=== PATIENT | female | born 1965 | race Caucasian/White ===

== ENCOUNTER 2017-04-02 10:05 | Inpatient (IN) | payer OTHER ==
[2017-04-02] VITALS (11 sets, daily range): BP systolic 123–163; BP diastolic 74–93
[~2017-04-02] VITALS: Ht 152.4 cm; Wt 84.8 kg
[2017-04-02] MEDS ORDERED: NALOXONE HCL 0.4 MG/ML AMPUL IV ONE ×2 (10:15)
--- NOTE | 2017-04-02 10:21 | NUR ---
PT IS IN ROOM #1A. DR GROVER EVALUATED THE PT.
[2017-04-02] MEDS ORDERED: NALOXONE HCL 0.4 MG/ML AMPUL ONE (10:26)
[2017-04-02 10:31] LABS: ABG BASE EXCESS -8.3 mmol/L; ABG HCO3 18.9 mmol/L; ABG PO2 177.6 mmHg (75.0-100.0); ABG SITE RIGHT RADIAL; ABG TOTAL HEMOGLOBIN 13.8 G/dL (12.0-16.0); COHb 1.7 % (0.5-1.5); O2Hb 97.3 % (94.0-97.0)
[2017-04-02 10:51] LABS: ETHANOL < 3 MG/DL (0-0)
[2017-04-02 11:02] LABS: CARBON DIOXIDE 23 mmol/L (21-32); CHLORIDE 99 mmol/L (98-107); CREATININE 1.1 mg/dL (0.6-1.3); GLUCOSE 97 mg/dL (74-106); POTASSIUM 4.1 mmol/L (3.5-5.1); UREA NITROGEN, BLOOD 22 mg/dL (7-18)
[2017-04-02 11:07] LABS: ALANINE AMINOTRANSFERASE 40 U/L (14-59); ALKALINE PHOSPHATASE 115 U/L (50-136); ASPARTATE AMINOTRANSFERASE 43 U/L (15-37); BILIRUBIN,DIRECT 0.1 mg/dL (0.0-0.2); BILIRUBIN,TOTAL 0.5 mg/dL (0.2-1.0); TOTAL PROTEIN, SERUM 8.5 g/dL (6.4-8.2)
[2017-04-02 11:14] LABS: ACETAMINOPHEN < 2.0 ug/mL (10-30)
[2017-04-02 11:21] LABS: BASOPHILS # (AUTO) 0.5 K/uL (0.0-8.0); BASOPHILS % (AUTO) 3.6 % (0.0-2.0); EOSINOPHILS # (AUTO) 0.2 K/uL (0.0-0.7); EOSINOPHILS % (AUTO) 1.7 % (0.0-7.0); HEMATOCRIT 39.9 % (37-47); HEMOGLOBIN 13.3 G/DL (12.0-16.0); LYMPHOCYTES # (AUTO) 3.2 K/UL (0.8-4.8); LYMPHOCYTES % (AUTO) 23.7 % (20.5-51.5); MEAN CORPUSCULAR HEMOGLOBIN 26.5 UUG (27.0-31.0); MEAN CORPUSCULAR HGB CONC 33 g/dL (32.0-37.0); MEAN CORPUSCULAR VOLUME 79.4 FL (81.0-99.0); MONOCYTES # (AUTO) 1.5 K/UL (0.1-1.30); MONOCYTES % (AUTO) 10.8 % (0.0-11.0); NEUTROPHILS # (AUTO) 8.1 K/UL (1.8-8.9); NEUTROPHILS % (AUTO) 60.2 % (38.5-71.5); PLATELET COUNT (AUTO) 233 K/UL (150-450); RED BLOOD CELL COUNT(AUTO) 5.02 MIL/UL (4.2-5.4); WHITE BLOOD COUNT (AUTO) 13.5 K/UL (4.0-11.2)
[2017-04-02 11:23] LABS: THYROID STIMULATING HORMONE 3.096 mIU/mL (0.358-3.740)
[2017-04-02 12:14] LABS: *BILIRUBIN,URIN NEGATIVE (NEGATIVE); *BLOOD, URINE Trace-lysed (NEGATIVE); *CLARITY,URINE CLEAR (CLEAR); *COLOR,URINE YELLOW (YELLOW); *KETONES,URINE TRACE (NEGATIVE); *PROTEIN,URINE TRACE (NEGATIVE); *UROBILINOGEN,URINE 0.2 E.U./dl (NORMAL); LEUKOCYTE ESTERASE ,URINE NEGATIVE (NEGATIVE); NITRITE, URINE NEGATIVE (NEGATIVE); PH,URINE 5.5 (5.0-8.0); UGLUCOSE NEGATIVE (NEGATIVE)
--- NOTE | 2017-04-02 12:15 | NUR ---
PT WAS TRANSFERED TO CCU ROOM #3. REPORT WAS GIVEN TO TRANSACTION MANAGER.
[2017-04-02 12:22] LABS: BACTERIA,URINE MODERATE /HPF (NONE SEEN); RBC,URINE 0-3 /HPF (0-3); SQUAMOUS EPITHELIAL CELL,UR FEW /HPF (NONE SEEN); WBC,URINE 0-3 /HPF (0-3)
[2017-04-02 12:25] LABS: *AMPHETAMINE, URINE POSITIVE (NEGATIVE); *BARBITURATE, URINE NEGATIVE (NEGATIVE); *CANNABINOID, URINE POSITIVE (NEGATIVE); *COCCAINE, URINE POSITIVE (NEGATIVE); *OPIATE, URINE POSITIVE (NEGATIVE); *PHENCYCLIDINE SCREEN,URINE NEGATIVE (NEGATIVE)
[2017-04-02] MEDS ORDERED: IV D5 1/2 NS 1000 ML 1,000 ML IV PRN (13:22)
--- NOTE | 2017-04-02 13:27 | NUR ---
Dr. Macias in to examine patient, orders to insert gomes catheter, NG tube and start patient on Narcan drip received.
[2017-04-02] MEDS ORDERED: NALOXONE HCL IV PRN (13:30)
[2017-04-02] MEDS ORDERED: NORMAL SALINE IV PRN (13:30)
[2017-04-02] MEDS ORDERED: MVI ADULT 10 ML VIAL=1 AMP 10 ML, THIAMINE HCL INJ 100 MG, FOLIC ACID 1 MG, MAGNESIUM S... IV SCH ×5 (13:30)
[2017-04-02] MEDS ORDERED: Z GUARD REMEDY PASTE 57 GM TUBE TOP PRN (13:30)
[2017-04-02] MEDS ORDERED: ONDANSETRON 4 MG/2 ML VIAL IV PRN (13:30)
[2017-04-02] MEDS ORDERED: HYDROCODONE/APAP 5-325MG TABLET PO PRN (13:30)
[2017-04-02] MEDS ORDERED: MAGNESIUM HYDROXIDE 30 ML LIQUID UDC PO PRN (13:30)
[2017-04-02] MEDS ORDERED: ZOLPIDEM 5 MG TABLET NG PRN (13:30)
[2017-04-02] MEDS ORDERED: ACETAMINOPHEN 325 MG TABLET PO PRN (13:30)
--- NOTE | 2017-04-02 13:43 | NUR ---
Case reported to Poison control and spoke with Mr. stroud and awaiting call with recommendations.
--- NOTE | 2017-04-02 13:50 | NUR ---
A call back from [facility] and recommendations for supportive care received. notified of recommendations.
--- NOTE | 2017-04-02 13:55 | NUR ---
Dr. Valiente ER physician in the unit to intubate patient as ordered by attending physician Dr. Macias. At 1356 20 mg of Etomidate and 100 mg of succinocholine administered by discharge coordinator as ordered by md. who is initiating intubation. 1458. Patient intubated ETT 7.5 22cm lip A/C 20, TV 500 and Peep of 5. saturation of 100%. SBP within normal limits.
--- NOTE | 2017-04-02 13:58 | NUR ---
PT INTUBATED BY ED PHYSICIAN. 7.5 ETT INSERTED, ETCO2 DETECTOR POSITIVE FOR CORRECT PLACEMENT, CLEAR BS OVER BOTH LUNG CARRILLO, ETT SECURED AT 21-22 LIP-LINE WITH ANCHOR FAST TUBE HADDAD WITH X-RAY ORDERED. PT PLACED ON VENT MECH VENT WITH MD ORDERED SETTINGS AC20 500VT PEEP+5, 40% FiO2 WITH SATS>94%. MD TO ORDER ABG'S X 20MIN. VENT ALARMS SET AND RESET. BVM AT BEDSIDE.
--- NOTE | 2017-04-02 13:58 | NUR ---
A call place for PICC line insertion Distribution Technician notified as well.
[2017-04-02] MEDS ORDERED: ETOMIDATE 20 MG/10 ML VIAL IV ONE (14:00)
[2017-04-02] MEDS ORDERED: SUCCINYLCHOLINE CHLORIDE 200 MG/10 ML VIAL IV ONE (14:00)
--- NOTE | 2017-04-02 14:05 | NUR ---
OG tube place due difficulty inserting through the nostrils. Johnson catheter also inserted at this time, and specimen collected and sent to Lab.
[2017-04-02] MEDS: PROPOFOL 100 ML IV PRN ×4 (14:11→21:36)
--- NOTE | 2017-04-02 14:12 | NUR ---
At this time patient started on Narcan drip as ordered. 5 minutes later patient restless agitated and able to reach ETT and forcefully attempted to removed it. RT Mina at bedside and prevented patient from doing it. Code grade called patient kicking. and banging herself to side rails. Narcan drip stopped at this time. and left on driprivan drip as ordered.
[2017-04-02] MEDS ORDERED: PROPOFOL 100 ML IV PRN (14:15)
[2017-04-02 14:56] LABS: ABG BASE EXCESS -4.8 mmol/L; ABG PCO2 36.3 mmHg (35.0-45.0); ABG PO2 129.9 mmHg (75.0-100.0); ABG SITE LEFT RADIAL; ABG TOTAL HEMOGLOBIN 12.4 G/dL (12.0-16.0); COHb 1.6 % (0.5-1.5); MetHb 0.3 % (0.0-1.5); O2Hb 97.1 % (94.0-97.0); VENT MODE VENT - A/C20; VT, ABG 500 mL
[2017-04-02 15:25] LABS: *BLOOD, URINE Trace-lysed (NEGATIVE); *CLARITY,URINE SLIGHTLY CLOUDY (CLEAR); *COLOR,URINE YELLOW (YELLOW); *KETONES,URINE 2+ (NEGATIVE); *PROTEIN,URINE TRACE (NEGATIVE); *UROBILINOGEN,URINE 0.2 E.U./dl (NORMAL); AMYLASE 18 U/L (25-115); LEUKOCYTE ESTERASE ,URINE NEGATIVE (NEGATIVE); LIPASE 82 U/L (73-393); NITRITE, URINE NEGATIVE (NEGATIVE); PH,URINE 5.5 (5.0-8.0); UGLUCOSE NEGATIVE (NEGATIVE)
[2017-04-02 15:26] LABS: *BILIRUBIN,URIN 1+ (NEGATIVE)
[2017-04-02 15:32] LABS: BACTERIA,URINE MODERATE /HPF (NONE SEEN); SQUAMOUS EPITHELIAL CELL,UR FEW /HPF (NONE SEEN)
[2017-04-02] MEDS ORDERED: MAGNESIUM HYDROXIDE 30 ML LIQUID UDC NG PRN (16:15)
[2017-04-02] MEDS ORDERED: ACETAMINOPHEN 650 MG/20.3 ML LIQUID UDC NG PRN (16:15)
[2017-04-02] MEDS ORDERED: BLOOD SUGAR DIAGNOSTIC 1 EACH STRIP VI SCH (17:15)
--- NOTE | 2017-04-02 17:59 | NUR ---
Patient suctioned by RT and reactions noted, move her upper extremities attempting to reach restrains in place. propofol titrated accordingly.
[2017-04-02] MEDS: FOLIC ACID 1 MG in IV DEXTROSE 5% 50 ML IV SCH (18:05)
[2017-04-02] MEDS: MVI ADULT 10 ML VIAL=1 AMP 10 ML in IV D5/ 0.9% NACL 1,000 ML IV PRN (18:09)
[2017-04-02] MEDS: BLOOD SUGAR DIAGNOSTIC 1 EACH STRIP VI SCH ×2 (18:25→23:21)
[2017-04-02] MEDS: THIAMINE HCL INJ 100 MG in IV DEXTROSE 5% 50 ML IV SCH (18:37)
--- NOTE | 2017-04-02 19:42 | NUR ---
Pt rec'd on Esteban settings AC 20, VT 500, PEEP+5 and FIO2-40%. 7.[address] patent and secure at approx. 22cm now repositioned the the left lip side. No resp. distress noted. Pt appears to be tolerating continuous mechanical ventilator settings well. Pt to be monitored throughout the shift and PRN SX. Esteban alarm parameters have been checked and remain audible at this time. Oral care has been done.
--- NOTE | 2017-04-02 20:00 | NUR ---
RECEIVED PT. ORALLY INTUBATED TO VENT W/ SETTINGS OF AC-20,TV-500,FIO2-40%, PEEP-+5, W/ O2 SAT OF 100%. SEDATED W/ DIPRIVAN @ 25MCQ/KG/MIN. IVF D51/2NS W/ MVI @ 75CC/HR ON R UPPER SHOULDER IV SITE.ORAL GASTRIC TUBE INTACT & CLAMPED. SOFT WRIST RESTRAINTS PATRICIO IN PLACE. AFEBRILE. BP STABLE. REPOSITIONED W/ HOB ELEVATED.
--- NOTE | 2017-04-02 20:15 | NUR ---
PICC LINE INSERTED ON LION. DCD IV SITE ON R UPPER SHOULDER.
--- NOTE | 2017-04-02 21:00 | NUR ---
INCREASED DIPRIVAN DRIP TO 50MCQ/KG MIN, PT IS RESTLESS & AGITATED.
[2017-04-02] MEDS: LORAZEPAM 2 MG/1 ML VIAL IV PRN (21:36)
--- NOTE | 2017-04-02 21:36 | NUR ---
MEDICATED W/ ATIVAN 1MG IVP FOR RESTLESSNESS. DR. Karis VALDEZ CALLED & UPDATED OF PT. STATUS.
--- NOTE | 2017-04-02 23:00 | NUR ---
HS CARE DONE .REPOSITIONED ON HER SIDE W/ HOB ELEVATED.
[2017-04-03] VITALS (23 sets, daily range): BP systolic 117–156; BP diastolic 54–88
[2017-04-03] MEDS: PROPOFOL 100 ML IV PRN ×6 (02:13→20:34)
--- NOTE | 2017-04-03 04:00 | NUR ---
AM CARE DONE. ORAL CARE DONE. REPOSITIONED ON HER BACK FOR CXR.
[2017-04-03] MEDS: LORAZEPAM 2 MG/1 ML VIAL IV PRN ×4 (04:09→19:39)
[2017-04-03 05:14] LABS: BASOPHILS # (AUTO) 0.1 K/uL (0.0-8.0); BASOPHILS % (AUTO) 0.7 % (0.0-2.0); EOSINOPHILS # (AUTO) 0.3 K/uL (0.0-0.7); EOSINOPHILS % (AUTO) 2.5 % (0.0-7.0); HEMATOCRIT 36.3 % (37-47); LYMPHOCYTES # (AUTO) 1.7 K/UL (0.8-4.8); LYMPHOCYTES % (AUTO) 15.5 % (20.5-51.5); MEAN CORPUSCULAR HEMOGLOBIN 26.2 UUG (27.0-31.0); MEAN CORPUSCULAR HGB CONC 33 g/dL (32.0-37.0); MEAN CORPUSCULAR VOLUME 79.5 FL (81.0-99.0); MONOCYTES # (AUTO) 0.6 K/UL (0.1-1.30); MONOCYTES % (AUTO) 5.2 % (0.0-11.0); NEUTROPHILS # (AUTO) 8.3 K/UL (1.8-8.9); NEUTROPHILS % (AUTO) 76.1 % (38.5-71.5); PLATELET COUNT (AUTO) 238 K/UL (150-450); RED BLOOD CELL COUNT(AUTO) 4.57 MIL/UL (4.2-5.4)
--- NOTE | 2017-04-03 05:26 | NUR ---
Pt remains on Esteban with no changes to the ventilator settings. No resp. distress noted throughout the shift. Pt was routinely sx'd and appeared to tolerate continuous mechanical ventilator settings well. BVM at bedside. 7.[address], patent and secure at approx. 22cm now at the right lip side. Esteban alarm parameters have been checked and remain audible.
[2017-04-03] MEDS: BLOOD SUGAR DIAGNOSTIC 1 EACH STRIP VI SCH ×4 (05:29→23:32)
[2017-04-03 05:43] LABS: THYROID STIMULATING HORMONE 0.713 mIU/mL (0.358-3.740)
[2017-04-03 06:03] LABS: BILIRUBIN,TOTAL 0.6 mg/dL (0.2-1.0); MAGNESIUM 1.7 mg/dL (1.8-2.4); PHOSPHOROUS 2.6 mg/dL (2.5-4.9); POTASSIUM 3.1 mmol/L (3.5-5.1); TOTAL PROTEIN, SERUM 6.5 g/dL (6.4-8.2)
--- NOTE | 2017-04-03 06:04 | NUR ---
REPOSITIONED ON HER SIDE W/ HOB ELEVATED. PT. REMAINS SEDATED ON DIPRIVAN DRIP. V/S STABLE.
[2017-04-03] MEDS: PANTOPRAZOLE ORAL SUSPENSION 40 MG SUSPDR.PKT NG SCH (06:06)
[2017-04-03 06:16] LABS: ABG BASE EXCESS 2.9 mmol/L; ABG HCO3 24.7 mmol/L; ABG PCO2 29.3 mmHg (35.0-45.0); ABG PH 7.544 (7.350-7.450); ABG PO2 139.7 mmHg (75.0-100.0); ABG SITE LEFT BRACHIAL; ABG TOTAL HEMOGLOBIN 11.7 G/dL (12.0-16.0); COHb 0.7 % (0.5-1.5); MetHb 0.2 % (0.0-1.5); O2Hb 98.2 % (94.0-97.0); VENT MODE VENT - A/C; VT, ABG 500 mL
[2017-04-03] MEDS ORDERED: PANTOPRAZOLE SODIUM 40 MG TABLET.DR PO SCH (07:00)
--- NOTE | 2017-04-03 07:30 | NUR ---
sedation vacation from 0730 to 0745. Patient restless agitated kicking and not following commands. Placed back on sedation. vitals stable. Rt at bedside, mouth care and suctioned.
[2017-04-03] MEDS: IV D5/ 0.9% NACL 1,000 ML IV PRN (07:57)
--- NOTE | 2017-04-03 09:15 | NUR ---
Patient received on Esteban vent on AC 20, vT500, +5,40% FiO2. She is intubated with 7.5 ETtube, 22cm at lip. DRYWALL TAPER HELPER used for cuff assessment. Anchorfast in place. Ettube location moved throughout shift. Oral care rendered. No signs of respiratory distress noted at this time. Ambu bag at bedside. Will continue to monitor throughout shift.
[2017-04-03] MEDS ORDERED: MAGNESIUM SULFATE/D5W 100 ML IV SCH (12:30)
[2017-04-03] MEDS ORDERED: POTASSIUM CHLORIDE 20 MEQ POWDER PACKET GT ONE (12:45)
--- NOTE | 2017-04-03 13:38 | NUR ---
Dr. Rivera in the unit to examine patient, report given see orders.
--- NOTE | 2017-04-03 14:00 | NUR ---
Sahil Morfin attending physician in the unit to assess patient post assessment orders to reintubate patient due air leaking. RT team notified. Addendum: 04/03/17 at 1557 by DICK GAYTAN RN [place] Operator Dr. Rivera notified of reintubation by Dr. Ch
[2017-04-03] MEDS ORDERED: LORAZEPAM 2 MG/1 ML VIAL IV PRN (14:30)
--- NOTE | 2017-04-03 14:40 | NUR ---
At this time patient reintubated by RT team with no distress noted, and follow up with chest X-ray confirmation.
--- NOTE | 2017-04-03 14:44 | NUR ---
Per MD order, changed ETtube with assistance from Varghese RT, Lincoln RT, Diamante RN, and Ysabel RN. Placed patient on 100% FiO2 prior to procedure with Ambubag at bedside. Airway suctioned. Bougie placed at 22 cm into Ettube, Ruptured cuff deflated and tube removed. New ETtube 7.5 introduced, 22cm lipline. Cuff inflated and tube secured with anchorfast. Bilateral breath sounds auscultated. Co2 detector has good color change. Will continue to monitor.
[2017-04-03] MEDS: PIPERACILLIN/TAZOBACTAM/D5W 3.375 G in PREMIXED 1 EACH IV SCH ×2 (14:55→21:48)
[2017-04-03] MEDS: FOLIC ACID 1 MG in IV DEXTROSE 5% 50 ML IV SCH (16:30)
[2017-04-03] MEDS: THIAMINE HCL INJ 100 MG in IV DEXTROSE 5% 50 ML IV SCH (17:32)
[2017-04-03] MEDS: MVI ADULT 10 ML VIAL=1 AMP 10 ML in IV D5/ 0.9% NACL 1,000 ML IV PRN (18:22)
--- NOTE | 2017-04-03 19:20 | NUR ---
RECEIVED PT ORALLY INTUBATED ETT 7.5 SECURED AT 22 CM LIP LINE. VENT SETTINGS AC 20 VT 500 PEEP 5 FIO2 35%. PT IS SEDATED AT THIS TIME. BS EQUAL BILAT FAIRLY CLEAR. SUCTION TRACE AMOUNT THIN WHITE SECRETIONS. VENT CHECKED. ALARMS WORKING WELL AND AUDIBLE.AMBU BAG AT BEDSIDE. NO DISTRESS NOTED AT THIS TIME. WILL CONTINUE TO MONITOR.
--- NOTE | 2017-04-03 20:00 | NUR ---
RECEIVED PT. REMAINS ORALLY INTUBATED TO VENT W/ SETTINGS OF AC-20, TV-500, FIO2-35%, peep-+5, w/ o2 sat of 100%. SEDATED W/ DIPRIVAN DRIP @ 50MCQ/KG/MIN VIA PICC LINE ON LION.IVF D51/2NS W/ MVI @ 75CC/HR. ORAL GASTRIC TUBE INTACT & PATENT. REPOSITIONED W/ HOB ELEVATED. AFEBRILE. BP STABLE. Addendum: 04/04/17 at 0709 by LESLIE RODRIGEZ RN IVF IS D5NS.
--- NOTE | 2017-04-03 21:00 | NUR ---
PICC LINE SITE CLEANED , APPLIED BIOPATCH & DRSG CHANGED.
[2017-04-03] MEDS ORDERED: PIPERACILLIN/TAZOBACTAM/D5W 3.375 G in PREMIXED 1 EACH IV SCH (22:00)
--- NOTE | 2017-04-03 23:00 | NUR ---
HS CARE DONE. ORAL CARE DONE. REPOSITIONED TO HER SIDE W/ HOB ELEVATED. REMAINS SEDATED ON DIPRIVAN DRIP.
[2017-04-04] VITALS (23 sets, daily range): BP systolic 105–155; BP diastolic 51–93
[2017-04-04] MEDS: PROPOFOL 100 ML IV PRN ×6 (00:19→20:43)
[2017-04-04] MEDS: LORAZEPAM 2 MG/1 ML VIAL IV PRN ×6 (00:39→22:13)
--- NOTE | 2017-04-04 03:15 | NUR ---
& FRIEND AT BEDSIDE FOR VISIT; UPDATED / MD's PLAN OF CARES.
--- NOTE | 2017-04-04 04:00 | NUR ---
AM CARE DONE. ORAL CARE DONE. REPOSITIONED ON HER BACK FOR CXR.
[2017-04-04 04:45] LABS: BASOPHILS # (AUTO) 0.1 K/uL (0.0-8.0); BASOPHILS % (AUTO) 1.1 % (0.0-2.0); EOSINOPHILS # (AUTO) 0.4 K/uL (0.0-0.7); EOSINOPHILS % (AUTO) 3.5 % (0.0-7.0); HEMATOCRIT 32.1 % (37-47); HEMOGLOBIN 10.6 G/DL (12.0-16.0); LYMPHOCYTES # (AUTO) 2.1 K/UL (0.8-4.8); LYMPHOCYTES % (AUTO) 19.9 % (20.5-51.5); MEAN CORPUSCULAR HEMOGLOBIN 26.2 UUG (27.0-31.0); MEAN CORPUSCULAR HGB CONC 33 g/dL (32.0-37.0); MEAN CORPUSCULAR VOLUME 79.2 FL (81.0-99.0); MONOCYTES # (AUTO) 0.7 K/UL (0.1-1.30); MONOCYTES % (AUTO) 6.9 % (0.0-11.0); NEUTROPHILS # (AUTO) 7.1 K/UL (1.8-8.9); NEUTROPHILS % (AUTO) 68.6 % (38.5-71.5); PLATELET COUNT (AUTO) 214 K/UL (150-450); RED BLOOD CELL COUNT(AUTO) 4.05 MIL/UL (4.2-5.4); WHITE BLOOD COUNT (AUTO) 10.4 K/UL (4.0-11.2)
[2017-04-04 05:00] LABS: CREATININE 0.7 mg/dL (0.6-1.3); MAGNESIUM 1.9 mg/dL (1.8-2.4); PHOSPHOROUS 2.5 mg/dL (2.5-4.9); POTASSIUM 3.2 mmol/L (3.5-5.1)
--- NOTE | 2017-04-04 05:30 | NUR ---
PT. REMAINS SEDATED W/ DIPRIVAN DRIP. REPOSITIONED ON HER L SIDE W/ HOB ELEVATED. V/S STABLE.
[2017-04-04] MEDS: PIPERACILLIN/TAZOBACTAM/D5W 3.375 G in PREMIXED 1 EACH IV SCH ×4 (05:51→23:30)
[2017-04-04] MEDS: BLOOD SUGAR DIAGNOSTIC 1 EACH STRIP VI SCH ×4 (06:00→23:34)
[2017-04-04] MEDS: PANTOPRAZOLE ORAL SUSPENSION 40 MG SUSPDR.PKT NG SCH (06:17)
--- NOTE | 2017-04-04 08:00 | NUR ---
RT at bedside and propofol down to 20mcg/kg min for weaning parameters.
[2017-04-04 09:24] LABS: ABG BASE EXCESS -1.1 mmol/L; ABG PCO2 31.4 mmHg (35.0-45.0); ABG PH 7.463 (7.350-7.450); ABG PO2 118.1 mmHg (75.0-100.0); ABG SITE LEFT BRACHIAL; ABG TOTAL HEMOGLOBIN 11.1 G/dL (12.0-16.0); COHb 0.7 % (0.5-1.5); MetHb 0.1 % (0.0-1.5); O2Hb 97.6 % (94.0-97.0); VENT MODE CPAP
--- NOTE | 2017-04-04 09:30 | NUR ---
Patient on weening mode since 809 and restless agitated unable to follow commands.
[2017-04-04] MEDS: IV D5/ 0.9% NACL 1,000 ML IV PRN (09:32)
[2017-04-04] MEDS ORDERED: POTASSIUM CHLORIDE 20 MEQ POWDER PACKET GT ONE (11:30)
--- NOTE | 2017-04-04 12:10 | NUR ---
Dr. Albrecht pulmonary services in the unit to examine patient; report given including ABG results. Orders received. see order flow sheet. Addendum: 04/04/17 at 1236 by DICK GAYTAN RN Orders to place patient back on sedation and on A/C 16, TV 500, PEEP +5 and 35% FIO2.
[2017-04-04] MEDS ORDERED: ENOXAPARIN SODIUM 30 MG/0.3 ML DISP.SYRIN SUBCUT SCH (12:30)
--- NOTE | 2017-04-04 12:30 | NUR ---
Dr. Sahil Morfin in the unit to examine patient; report given, no orders received.
--- NOTE | 2017-04-04 12:30 | NUR ---
Patient placed on ordered vent setting by RT Almeida.
[2017-04-04] MEDS: FOLIC ACID 1 MG in IV DEXTROSE 5% 50 ML IV SCH (16:45)
[2017-04-04] MEDS: THIAMINE HCL INJ 100 MG in IV DEXTROSE 5% 50 ML IV SCH (17:26)
[2017-04-04] MEDS: NUTREN 1.5 1000ML BAG GT PRN ×2 (18:49→18:51)
--- NOTE | 2017-04-04 18:52 | NUR ---
microbiology results for urine notified to Dr. Palomino control operator for Dr. Baxter. No orders received.
--- NOTE | 2017-04-04 19:59 | NUR ---
Pt rec'd on Esteban settings AC 16, VT 500, PEEP+5 and FIO2-35%. 7.[address] patent and secure at approx. 22cm now repositioned the the left lip side. No resp. distress noted. Pt appears to be tolerating continuous mechanical ventilator settings well. Pt to be monitored throughout the shift and PRN SX. Esteban alarm parameters have been checked and remain audible at this time. Oral care has been done.
--- NOTE | 2017-04-04 20:00 | NUR ---
RECEIVED PT. REMAINS SEDATED W/ DIPRIVAN DRIP @ 50MCQ/KG/MIN VIA PICC LINE ON LION. ORALLY INTUBATED TO VENT W/ SETTINGS OF AC-16, TV-500, FIO2-35%, PEEP-+5, W/ O2 SAT OF 100%. ORAL GASTRIC TUBE IN PLACE, CHECKED FOR PLACEMENT & RESIDUAL NONE NOTED, ON TUBE FDG OF NUTREN 1.5 @ 10CC/HR. IVF OF D5NS @ 75CC/HR. SUCTIONED VIA ETT & ORALLY W/ SMALL AMT. OF THIN WHITISH MUCOUS. REPOSITIONED PT TO HER SIDE W/ HOB ELEVATED 30 DEGREES CONT.
[2017-04-04] MEDS: ENOXAPARIN SODIUM 40 MG/0.4 ML DISP.SYRIN SQ SCH (20:40)
--- NOTE | 2017-04-04 23:30 | NUR ---
REPOSITIONED & SUCTIONED. KEPT HOB ELEVATED.
[2017-04-05] VITALS (23 sets, daily range): BP systolic 104–160; BP diastolic 49–95
[2017-04-05] MEDS: PROPOFOL 100 ML IV PRN ×4 (00:28→08:27)
[2017-04-05] MEDS: MVI ADULT 10 ML VIAL=1 AMP 10 ML in IV D5/ 0.9% NACL 1,000 ML IV PRN (01:33)
--- NOTE | 2017-04-05 04:00 | NUR ---
AM CARE DONE. ORAL CARE DONE. CHECKED RESIDUAL OF ORAL GASTRIC TUBE 5CC NOTED. REPOSITIONED PT W/ HOB ELEVATED.
[2017-04-05 05:10] LABS: BASOPHILS % (AUTO) 0.4 % (0.0-2.0); EOSINOPHILS # (AUTO) 0.5 K/uL (0.0-0.7); EOSINOPHILS % (AUTO) 6.6 % (0.0-7.0); HEMATOCRIT 29.3 % (37-47); HEMOGLOBIN 9.9 G/DL (12.0-16.0); LYMPHOCYTES # (AUTO) 1.8 K/UL (0.8-4.8); LYMPHOCYTES % (AUTO) 22.3 % (20.5-51.5); MEAN CORPUSCULAR HEMOGLOBIN 27.3 UUG (27.0-31.0); MEAN CORPUSCULAR HGB CONC 34 g/dL (32.0-37.0); MEAN CORPUSCULAR VOLUME 80.4 FL (81.0-99.0); MONOCYTES # (AUTO) 0.5 K/UL (0.1-1.30); MONOCYTES % (AUTO) 5.8 % (0.0-11.0); NEUTROPHILS # (AUTO) 5.3 K/UL (1.8-8.9); NEUTROPHILS % (AUTO) 64.9 % (38.5-71.5); PLATELET COUNT (AUTO) 191 K/UL (150-450); RED BLOOD CELL COUNT(AUTO) 3.64 MIL/UL (4.2-5.4); WHITE BLOOD COUNT (AUTO) 8.1 K/UL (4.0-11.2)
[2017-04-05 05:23] LABS: CREATININE 0.8 mg/dL (0.6-1.3); POTASSIUM 3.6 mmol/L (3.5-5.1)
[2017-04-05] MEDS: PIPERACILLIN/TAZOBACTAM/D5W 3.375 G in PREMIXED 1 EACH IV SCH ×2 (05:29→12:52)
[2017-04-05] MEDS: BLOOD SUGAR DIAGNOSTIC 1 EACH STRIP VI SCH ×3 (05:36→18:06)
--- NOTE | 2017-04-05 06:00 | NUR ---
REPOSITIONED & SUCTIONED. INCREASED TUBE FDG TO 40CC/HR, RESIDUAL 5CC NOTED. KEPT HOB ELEVATED 30 DEGREES CONT.
[2017-04-05] MEDS: PANTOPRAZOLE ORAL SUSPENSION 40 MG SUSPDR.PKT NG SCH (06:21)
--- NOTE | 2017-04-05 07:40 | NUR ---
PATIENT RECEIVED IN ROOM RESTING WITH EYES CLOSED IN NO ACUTE DISTRESS. PATIENT ON PROPOFOL 50MCG/KG/MIN. SR WITH BBB ON BEDISDE MONITOR. PATIENT TOLERATING VENT SETTINGS WELL WITH NO SOB AT THIS TIME. 02 SAT 100%. VENT SETTINGS ARE AC 16, VT 500, +5, 35% FIO2. 7.5 ETT IS PATENT AND SECURED. ORAL G-TUBE WITH GT FEEDINGS RUNNING NUTRIEN 1.5 AT 40 ML/HR. TOLERATING WELL. PLACEMENT CHECKED ON AUSCULTATION. NO RESIDUAL NOTED. HOB ELEVATED. STEPHENSON CATH IN PLACE WITH URINE YELLOW/GREENISH IN STEPHENSON CATH BAG. PICC LINE TO LION INTACT AND PATENT. C/D/I DRESSING IN PLACE. RUNNING IVF AT 75 ML/HR. DVT PUMPS AND FIRST STEP MATTRESS IN PLACE.
--- NOTE | 2017-04-05 07:54 | NUR ---
Unable to hear dosalis pedis pulse to touch and with doppler. Weak pulse to lateral plantar. Call placed to Sahil Kothari DNP. See new orders.
--- NOTE | 2017-04-05 10:13 | NUR ---
PT ON COATS VENT, SETTINGS ARE AC 16, VT 500, +5, 35% FIO2. 7.5 ETT IS PATENT AND SECURED WITH ANCHOR FAST. TOLERATING VENT SETTINGS WELL WITH NO SOB AT THIS TIME. MINIMAL AMOUNT OF PALE YELLOW SECRETIONS. HME CHANGED. ALARMS ARE ON AND AUDIBLE. BVM AND BACK UP TRACH AT BEDSIDE. WILL CONTINUE TO MONITOR.
--- NOTE | 2017-04-05 10:45 | NUR ---
DANNY GARCIA DNP IN TO SEE PATIENT. DETAILED REPORT GIVEN. SEE NEW ORDERS.
--- NOTE | 2017-04-05 11:00 | NUR ---
INITIATING WEANING TRIAL, PER ORDER. RT AT BEDSIDE.
--- NOTE | 2017-04-05 11:35 | NUR ---
CALL RECEIVED FROM DR. ABRAHAM. DETAIL REPORT GIVEN.
[2017-04-05 11:42] LABS: ABG BASE EXCESS -0.4 mmol/L; ABG PCO2 33.1 mmHg (35.0-45.0); ABG PH 7.459 (7.350-7.450); ABG PO2 132.9 mmHg (75.0-100.0); ABG SITE RIGHT RADIAL; ABG TOTAL HEMOGLOBIN 10.6 G/dL (12.0-16.0); COHb 0.5 % (0.5-1.5); MetHb 0.1 % (0.0-1.5); O2Hb 98.1 % (94.0-97.0); VENT MODE CPAP
--- NOTE | 2017-04-05 11:55 | NUR ---
ABG RESULTS REPORTED TO DANNY GARCIA DNP.
[2017-04-05] MEDS ORDERED: hydrALAZINE HCL 20 MG/1 ML VIAL IV PRN (12:00)
[2017-04-05] MEDS ORDERED: ENALAPRILAT DIHYDRATE 1.25 MG/1 ML VIAL IV PRN (12:00)
--- NOTE | 2017-04-05 12:00 | NUR ---
CALL PLACE TO DR. ABRAHAM.
--- NOTE | 2017-04-05 12:21 | NUR ---
2ND CALL PLACED TO DR. ABRAHAM. DANNY GARCIA DNP NOTIFIED. ORDERS RECEIVED FROM TY GARCIA TO EXTUBATE. RT BOBO NOTIFIED.
--- NOTE | 2017-04-05 12:25 | NUR ---
DR. ABRAHAM IN TO SEE THE PATIENT. DETAILED REPORT GIVEN. AGREES WITH CURRENT ORDERS.
[2017-04-05] MEDS ORDERED: DC PROPOFOL ONCE EXTUBATED XX PRN (12:30)
--- NOTE | 2017-04-05 12:30 | NUR ---
PT WAS EXTUBATED PER MD ORDERS AND PLACED ON 2 LPM VIA NASAL CANNULA. DOING WELL AT THIS TIME, NO SOB NOTED. WILL CONTINUE TO MONITOR FOR S/S OF RESPIRATORY DISTRESS.
--- NOTE | 2017-04-05 13:30 | NUR ---
During patient care, patient became agitated and combative, swinging arms around, removing lines and kicking. Code Logan called. Patient medicated as ordered.
[2017-04-05] MEDS: LORAZEPAM 2 MG/1 ML VIAL IV PRN ×6 (13:36→23:33)
[2017-04-05] MEDS ORDERED: OLANZAPINE 10 MG VIAL IM ONE (14:45)
[2017-04-05] MEDS: IV D5/ 0.9% NACL 1,000 ML IV PRN (15:37)
[2017-04-05] MEDS: NICOTINE 21 MG/24HR PATCH TD SCH (16:52)
[2017-04-05] MEDS: FOLIC ACID 1 MG in IV DEXTROSE 5% 50 ML IV SCH (17:35)
[2017-04-05] MEDS: THIAMINE HCL INJ 100 MG in IV DEXTROSE 5% 50 ML IV SCH (18:02)
--- NOTE | 2017-04-05 19:15 | NUR ---
ALL DOCUMENTATIONS ARE AMENABLE AND NOTED. REPORT HANDED TO RN, PT'S CONDITION REMAINS UNCHANGED.
--- NOTE | 2017-04-05 20:00 | NUR ---
Pt awake, restless, in no apparent acute distress. Pt growling at times, speech unclear but able to focus when spoken to. s/p extubation this pm. Resp easy and regular. Sats 93-94% on room air. At times with productive cough, agitated with attempts to suction. Tends to expectorate and spit secretions. Monitor Sinus Tach with BBB, no ectopy. Safety and fall precautions observed at all times. Soft restraints on, circ checks adequate. NPO and aspiration precautions observed. Please see CCU flowsheet for full assessment and clinical data.
[2017-04-05] MEDS: ENOXAPARIN SODIUM 40 MG/0.4 ML DISP.SYRIN SQ SCH (21:02)
--- NOTE | 2017-04-05 22:00 | NUR ---
Pt noted to be paranoid/suspicious, frequently reoriented and reassured. Fall, safety and aspiration precautions observed at all times. O2 2L/min placed due to sats as low as 90% when agitated. Will continue to monitor closely. called in for update.
[2017-04-06] VITALS (22 sets, daily range): BP systolic 142–181; BP diastolic 86–116
--- NOTE | 2017-04-06 00:01 | NUR ---
Noted pt getting more difficult to control. Extremely agitated, restless, combative, difficult to manage even with RT's assistance. Dr. Kothari notified and received one time order of Benadryl/Hall IM, carried out.
[2017-04-06] MEDS: BLOOD SUGAR DIAGNOSTIC 1 EACH STRIP VI SCH ×5 (00:03→23:26)
[2017-04-06] MEDS ORDERED: diphenhydrAMINE 50 MG/1 ML VIAL IM ONE ×2 (00:15→22:30)
[2017-04-06] MEDS ORDERED: HALOPERIDOL LACTATE 5 MG/1 ML VIAL IM ONE (00:15)
[2017-04-06] MEDS ORDERED: diphenhydrAMINE 50 MG/1 ML VIAL ONE ×2 (00:22→22:46)
[2017-04-06] MEDS ORDERED: HALOPERIDOL LACTATE 5 MG/1 ML VIAL ONE ×2 (00:24→22:47)
--- NOTE | 2017-04-06 04:00 | NUR ---
Has been quiet on and off; at times crying then screaming in Togolese. Periods of restlessness, agitation especially to touch. AM care rendered. Nursing comfort measures observed at all times.
[2017-04-06 04:57] LABS: BASOPHILS # (AUTO) 0.3 K/uL (0.0-8.0); BASOPHILS % (AUTO) 2.8 % (0.0-2.0); EOSINOPHILS # (AUTO) 0.3 K/uL (0.0-0.7); EOSINOPHILS % (AUTO) 3.5 % (0.0-7.0); HEMATOCRIT 31.8 % (37-47); HEMOGLOBIN 10.6 G/DL (12.0-16.0); MEAN CORPUSCULAR HEMOGLOBIN 26.5 UUG (27.0-31.0); MEAN CORPUSCULAR HGB CONC 33 g/dL (32.0-37.0); MEAN CORPUSCULAR VOLUME 79.4 FL (81.0-99.0); MONOCYTES # (AUTO) 0.5 K/UL (0.1-1.30); MONOCYTES % (AUTO) 4.9 % (0.0-11.0); NEUTROPHILS # (AUTO) 6.8 K/UL (1.8-8.9); NEUTROPHILS % (AUTO) 68.8 % (38.5-71.5); PLATELET COUNT (AUTO) 250 K/UL (150-450); RED BLOOD CELL COUNT(AUTO) 4.01 MIL/UL (4.2-5.4); WHITE BLOOD COUNT (AUTO) 9.9 K/UL (4.0-11.2)
[2017-04-06 05:10] LABS: CREATININE 0.7 mg/dL (0.6-1.3); MAGNESIUM 1.6 mg/dL (1.8-2.4); PHOSPHOROUS 2.7 mg/dL (2.5-4.9); POTASSIUM 3.4 mmol/L (3.5-5.1)
[2017-04-06] MEDS: LORAZEPAM 2 MG/1 ML VIAL IV PRN ×6 (05:16→20:46)
[2017-04-06] MEDS: MVI ADULT 10 ML VIAL=1 AMP 10 ML in IV D5/ 0.9% NACL 1,000 ML IV PRN (05:55)
--- NOTE | 2017-04-06 06:45 | NUR ---
Appears more calm later part of shift after another AM care. Nursing comfort measures and aspiration precautions maintained at all times. Please see CCU flowsheet for trends and clinical data.
[2017-04-06] MEDS: PANTOPRAZOLE ORAL SUSPENSION 40 MG SUSPDR.PKT NG SCH (07:00)
--- NOTE | 2017-04-06 07:25 | NUR ---
Patient extubated yesterday, no OG tube present, NPO restless agitated not following commands. Addendum: 04/06/17 at 1751 by DICK GAYTAN RN ng tube medications not given.
[2017-04-06] MEDS: NICOTINE 21 MG/24HR PATCH TD SCH (09:04)
--- NOTE | 2017-04-06 11:30 | NUR ---
Dr. Albrecht pulmonology services in the unit to examine patient, report given.
--- NOTE | 2017-04-06 15:23 | NUR ---
SBP remains above 160's Dr[address] Morfin notified.
[2017-04-06] MEDS: MAGNESIUM SULFATE/D5W 100 ML IV SCH ×2 (15:27→16:20)
--- NOTE | 2017-04-06 15:55 | NUR ---
A call back from Dr. Morfin and orders for hydralazine 10mg IVP. [id number] prn. for SBP above 160's.
[2017-04-06] MEDS: FOLIC ACID 1 MG in IV DEXTROSE 5% 50 ML IV SCH (16:41)
--- NOTE | 2017-04-06 17:00 | NUR ---
Patient remains restless but able to follow command, and meeting restrain release criteria.
[2017-04-06] MEDS: THIAMINE HCL INJ 100 MG in IV DEXTROSE 5% 50 ML IV SCH (17:14)
[2017-04-06] MEDS: POTASSIUM CHLORIDE 50 ML IV SCH ×2 (17:33→18:10)
--- NOTE | 2017-04-06 20:00 | NUR ---
RECEIVED PT RESTLESS & AGITATED, ON PATRICIO. SOFT WRIST RESTRAINTS. IVF D5NS W/ MVI @ 75CC/HR VIA PICC LINE ON LION. ON O2 @ 3LNC W/ O2 SAT OF 100%. WATCHED PT. CLOSELY.
[2017-04-06] MEDS: hydrALAZINE HCL 20 MG/1 ML VIAL IV PRN (20:14)
--- NOTE | 2017-04-06 20:46 | NUR ---
MEDICATED W/ HALDOL 1MG IVP FOR AGITATION.
[2017-04-06] MEDS: ENOXAPARIN SODIUM 40 MG/0.4 ML DISP.SYRIN SQ SCH (20:56)
[2017-04-06] MEDS: IV D5/ 0.9% NACL 1,000 ML IV PRN (21:21)
--- NOTE | 2017-04-06 21:45 | NUR ---
PT REMAINS VERY AGITATED & RESTLESS, CALLED DANNY GARCIA.
[2017-04-06] MEDS ORDERED: HALOPERIDOL DECANOATE 50 MG/1 ML AMPUL IM ONE (22:30)
--- NOTE | 2017-04-06 22:47 | NUR ---
DANNY GARCIA CALLED BACK W/ ORDERS, WAS ALSO NOTIFIED THAT BP REMAINS ELEVATED AFTER HYDRALAZINE 10 IVP GIVEN NO ORDER RECEIVED.
[2017-04-07] VITALS (17 sets, daily range): BP systolic 104–176; BP diastolic 63–99
[2017-04-07] MEDS: LORAZEPAM 2 MG/1 ML VIAL IV PRN ×4 (00:29→11:31)
[2017-04-07] MEDS: hydrALAZINE HCL 20 MG/1 ML VIAL IV PRN (02:05)
--- NOTE | 2017-04-07 04:00 | NUR ---
BED BATH GIVEN, ORAL CARE DONE. REPOSITIONED ON HER SIDE W/ HOB ELEVATED. NOT IN ANY DISTRESS.
[2017-04-07 05:53] LABS: CREATININE 0.7 mg/dL (0.6-1.3); MAGNESIUM 1.8 mg/dL (1.8-2.4); POTASSIUM 3.2 mmol/L (3.5-5.1)
--- NOTE | 2017-04-07 06:00 | NUR ---
PT IS QUITE THIS TIME. V/S STABLE.
[2017-04-07] MEDS: BLOOD SUGAR DIAGNOSTIC 1 EACH STRIP VI SCH ×3 (06:07→18:45)
[2017-04-07] MEDS: PANTOPRAZOLE ORAL SUSPENSION 40 MG SUSPDR.PKT NG SCH ×2 (06:24→06:39)
--- NOTE | 2017-04-07 07:49 | NUR ---
PATIENT RECEIVED IN ROOM ALERT AWAKE AND ORIENTED X1 ABLE TO ANSWER SIMPLE QUESTIONS BUT CONFUSED AND RESTLESS. SR/ST ON BEDSIDE MONITOR. RESPIRATIONS EVEN AND UNLABORED NO S/S OF DISTRESS OBSERVED. OXYGEN 98% IN ROOM AIR. STEPHENSON CATH IN PLACE WITH URINE YELLOW AND CLEAR IN STEPHENSON BAG. PATIENT REPOSITIONED WITH PILLOWS FOR COMFORT. HEELS FLOATED ON PILLOWS. PICC LINE TO TO LION, RUNNING D5NS AT 75 ML/MIN. DVT PUMPS AND FIRST STEP MATTRESS IN PLACE.
[2017-04-07] MEDS: NICOTINE 21 MG/24HR PATCH TD SCH (09:40)
[2017-04-07] MEDS: ACETAMINOPHEN 650 MG SUPP.RECT RC PRN (11:31)
[2017-04-07] MEDS: MVI ADULT 10 ML VIAL=1 AMP 10 ML in IV D5/ 0.9% NACL 1,000 ML IV PRN (11:43)
[2017-04-07] MEDS: POTASSIUM CHLORIDE 50 ML IV SCH ×4 (14:18→16:29)
--- NOTE | 2017-04-07 15:31 | NUR ---
PATIENT SEEN BY DR. DANNY GARCIA. REPORT GIVEN. SEE NEW ORDERS.
--- NOTE | 2017-04-07 17:20 | NUR ---
PATIENT MOVED TO ROOM 225. NOW ROOPA. PATIENT RE-DIRECTABLE AT THIS TIME. RESTRAINS OFF. 1:1 SITTER AT BEDSIDE FOR SAFETY.
[2017-04-07] MEDS: THIAMINE HCL INJ 100 MG in IV DEXTROSE 5% 50 ML IV SCH (17:46)
[2017-04-07] MEDS: FOLIC ACID 1 MG in IV DEXTROSE 5% 50 ML IV SCH (18:45)
--- NOTE | 2017-04-07 19:10 | NUR ---
Bedside reporting with ALFREDO Mariscal. Patient sleeping during initial rounds, sitter at bedside. No s/s of respiratory distress noted. F/C intact with dark sherry colored urine output.Safety measures and fall precaution maintained. Continue care as planned.
[2017-04-07] MEDS: ENOXAPARIN SODIUM 40 MG/0.4 ML DISP.SYRIN SQ SCH (21:16)
[2017-04-08] VITALS: BP 144/78
[2017-04-08] MEDS: LORAZEPAM 2 MG/1 ML VIAL IV PRN ×2 (00:19→22:58)
[2017-04-08] MEDS: BLOOD SUGAR DIAGNOSTIC 1 EACH STRIP VI SCH ×4 (00:53→17:11)
[2017-04-08 04:00] VITALS: BP 140/78
[2017-04-08] MEDS: IV D5/ 0.9% NACL 1,000 ML IV PRN ×2 (05:06→21:40)
--- NOTE | 2017-04-08 06:55 | NUR ---
Slept most of time. Sitter 1:1 maintained, at bedside. No complaint presented all night. No agitation/restlessness reported. No significant event reported all night. Continue care as planned.
--- NOTE | 2017-04-08 06:57 | NUR ---
Bedside reporting with ALFREDO Smith
[2017-04-08 06:59] LABS: CREATININE 0.8 mg/dL (0.6-1.3); MAGNESIUM 1.9 mg/dL (1.8-2.4); PHOSPHOROUS 3.1 mg/dL (2.5-4.9); POTASSIUM 3.7 mmol/L (3.5-5.1)
[2017-04-08] MEDS: PANTOPRAZOLE ORAL SUSPENSION 40 MG SUSPDR.PKT NG SCH (07:03)
[2017-04-08 07:19] LABS: BASOPHILS # (AUTO) 0.3 K/uL (0.0-8.0); BASOPHILS % (AUTO) 3.5 % (0.0-2.0); EOSINOPHILS # (AUTO) 0.6 K/uL (0.0-0.7); EOSINOPHILS % (AUTO) 5.8 % (0.0-7.0); HEMATOCRIT 33.7 % (37-47); HEMOGLOBIN 11.4 G/DL (12.0-16.0); LYMPHOCYTES # (AUTO) 2.2 K/UL (0.8-4.8); LYMPHOCYTES % (AUTO) 22.9 % (20.5-51.5); MEAN CORPUSCULAR HEMOGLOBIN 26.7 UUG (27.0-31.0); MEAN CORPUSCULAR HGB CONC 34 g/dL (32.0-37.0); MEAN CORPUSCULAR VOLUME 79.1 FL (81.0-99.0); MONOCYTES # (AUTO) 0.8 K/UL (0.1-1.30); MONOCYTES % (AUTO) 7.9 % (0.0-11.0); NEUTROPHILS # (AUTO) 5.6 K/UL (1.8-8.9); NEUTROPHILS % (AUTO) 59.9 % (38.5-71.5); PLATELET COUNT (AUTO) 279 K/UL (150-450); RED BLOOD CELL COUNT(AUTO) 4.27 MIL/UL (4.2-5.4); WHITE BLOOD COUNT (AUTO) 9.5 K/UL (4.0-11.2)
[2017-04-08 07:30] VITALS: BP 146/76
--- NOTE | 2017-04-08 08:00 | NUR ---
awake alert and oriented, denies of pain, head of bed elevated, tele SB [id number], denies of dizziness, no nausea on room air, expalined plan of care- verbalized understanding, has questions re food for breakfast- called kitchen to call pt, needs attended, call light within reach. Addendum: 04/08/17 at 0911 by KELTON KOEHLER RN tele SR with BBB
--- NOTE | 2017-04-08 08:40 | NUR ---
Patient significant other at bedside. Addendum: 04/09/17 at 0542 by PRATEEK WATSON RN wrong entry.
[2017-04-08] MEDS: NICOTINE 21 MG/24HR PATCH TD SCH (08:41)
--- NOTE | 2017-04-08 09:00 | NUR ---
had juice and boost only for breakfast, oriented to self, doesn't know where she is- oriented, asking why she's in the hospital, called family. Sitter in the room. no distress noted
--- NOTE | 2017-04-08 10:30 | NUR ---
dozing at this time- arouses easily
--- NOTE | 2017-04-08 11:17 | NUR ---
moved to room 211 close to nurses station per charge nurse- no sitter avail-
[2017-04-08] MEDS: POTASSIUM CHLORIDE 50 ML IV SCH ×4 (11:45→15:27)
[2017-04-08 11:51] VITALS: BP 130/66
--- NOTE | 2017-04-08 11:53 | NUR ---
significant other here visiting
[2017-04-08] MEDS: ACETAMINOPHEN 650 MG SUPP.RECT RC PRN (13:20)
--- NOTE | 2017-04-08 13:20 | NUR ---
downgraded to medsurg, medicated with tylenol 650mg supp for temp of 99.9, taking fluids fairly
[2017-04-08] MEDS: FOLIC ACID 1 MG TABLET PO SCH (14:05)
[2017-04-08] MEDS: MULTIVITAMINS,THERAPEUTIC TABLET PO SCH (14:05)
[2017-04-08] MEDS: THIAMINE HCL 100 MG TABLET PO SCH (14:05)
[2017-04-08 16:00] VITALS: BP 157/84
--- NOTE | 2017-04-08 18:47 | NUR ---
no distress noted, last temp 99.1, all needs attended and met, cooperative and calm this shift, no aggressive behavior noted, safety measures maintained, call light within reach, bed alarm on
--- NOTE | 2017-04-08 19:20 | NUR ---
Bedside reporting with ALFREDO Smith. Awake during initial rounds. Denies any pain/discomforts at this time. Assisted in dialing the phone. F/c intact with pinkish colored urine output. Instructed Ptient to avoid pulling/tagging the tubing to avoid complication. Call light within reach. Continue care as planned.
[2017-04-08 20:00] VITALS: BP 174/86
--- NOTE | 2017-04-08 20:42 | NUR ---
Patient significant other at bedside.
--- NOTE | 2017-04-08 21:15 | NUR ---
Patients wants to smoke outside. Instructed patient that we are not allowing her this time due to no available staff to watch her.
[2017-04-08] MEDS: ENOXAPARIN SODIUM 40 MG/0.4 ML DISP.SYRIN SQ SCH (21:36)
--- NOTE | 2017-04-08 22:15 | NUR ---
Patient wants her significant other to stay over night. Explained to patient and her significant other that there is policy that we have to adhere , significant other agreeable and patient starts crying. Ativan was given as ordered and needed.
--- NOTE | 2017-04-09 00:25 | NUR ---
Patient significant other left
[2017-04-09] MEDS: BLOOD SUGAR DIAGNOSTIC 1 EACH STRIP VI SCH ×3 (00:35→11:52)
[2017-04-09 05:22] VITALS: BP 148/76
--- NOTE | 2017-04-09 05:50 | NUR ---
Picc line dressing changed, tolerated well.
--- NOTE | 2017-04-09 06:20 | NUR ---
Slept well. No complaint of pain/discomforts presented. All needs attended and met. Continue care as planned.
[2017-04-09] MEDS: PANTOPRAZOLE ORAL SUSPENSION 40 MG SUSPDR.PKT NG SCH (06:33)
[2017-04-09 06:49] LABS: BASOPHILS # (AUTO) 0.1 K/uL (0.0-8.0); BASOPHILS % (AUTO) 0.7 % (0.0-2.0); EOSINOPHILS # (AUTO) 0.6 K/uL (0.0-0.7); EOSINOPHILS % (AUTO) 6.6 % (0.0-7.0); HEMATOCRIT 33.3 % (37-47); HEMOGLOBIN 11.2 G/DL (12.0-16.0); LYMPHOCYTES # (AUTO) 2.2 K/UL (0.8-4.8); LYMPHOCYTES % (AUTO) 25.4 % (20.5-51.5); MEAN CORPUSCULAR HEMOGLOBIN 26.8 UUG (27.0-31.0); MEAN CORPUSCULAR HGB CONC 34 g/dL (32.0-37.0); MEAN CORPUSCULAR VOLUME 79.8 FL (81.0-99.0); MONOCYTES # (AUTO) 0.8 K/UL (0.1-1.30); MONOCYTES % (AUTO) 9.8 % (0.0-11.0); NEUTROPHILS # (AUTO) 4.9 K/UL (1.8-8.9); NEUTROPHILS % (AUTO) 57.5 % (38.5-71.5); PLATELET COUNT (AUTO) 326 K/UL (150-450); RED BLOOD CELL COUNT(AUTO) 4.17 MIL/UL (4.2-5.4); WHITE BLOOD COUNT (AUTO) 8.6 K/UL (4.0-11.2)
[2017-04-09 07:14] LABS: CREATININE 0.6 mg/dL (0.6-1.3); MAGNESIUM 1.8 mg/dL (1.8-2.4); PHOSPHOROUS 3.3 mg/dL (2.5-4.9); POTASSIUM 3.7 mmol/L (3.5-5.1)
[2017-04-09] MEDS: THIAMINE HCL 100 MG TABLET PO SCH (09:05)
[2017-04-09] MEDS: MULTIVITAMINS,THERAPEUTIC TABLET PO SCH (09:05)
[2017-04-09] MEDS: NICOTINE 21 MG/24HR PATCH TD SCH (09:05)
[2017-04-09] MEDS: FOLIC ACID 1 MG TABLET PO SCH (09:05)
[2017-04-09 12:05] VITALS: BP 165/90
--- NOTE | 2017-04-09 13:00 | NUR ---
[facility] crisis team cleared pt ok to leave. Awaiting for MD to give orders
--- NOTE | 2017-04-09 14:30 | NUR ---
Pt states that shes anxious. Ativan given for anxiety. Call light is within reach.
[2017-04-09] MEDS: LORAZEPAM 2 MG/1 ML VIAL IV PRN (14:48)
[2017-04-09 16:00] VITALS: BP 158/90
--- NOTE | 2017-04-09 16:30 | NUR ---
Awaiting still for discharge orders from DR DELGADO.. Pt feels less anxious after ativan given earlier.
--- NOTE | 2017-04-09 17:03 | NUR ---
Pt has discharge order. Pt left hospital without notifying nursing staff. Checked with security no sign of pt on hospital property. Messages left on pt's phone number contact. [phone] and pt's " VANDANA." - [phone]. Message left for pt to come back and have the line be disconnected. Notified Anibal nursing supervisor prep of situation due to pt came in for OVERDOSE heroin and pt still has her midline access on the right brachial. Notified DR DANNY Barnett Called to police and reported.
== END 2017-04-09 17:00 | disposition home or self-care (01) | DRG 816 ==
LOC: EDBD 10:05 → ER 10:05 → CCU 12:05 → TELE-TD 04-07 17:25 → MED 04-08 11:40
PROVIDERS: ADMIT Internal Medicine; ATTEND Internal Medicine
PROC: 5A1945Z Respiratory Ventilation, 24-96 Consecutive Hours (ICD-10-PCS; principal; 2017-04-02)
PROC: 0BH17EZ Insertion of Endotracheal Airway into Trachea, Via Natural or Artificial Opening (ICD-10-PCS; principal; 2017-04-02)
PROC: 02HV33Z Insertion of Infusion Device into Superior Vena Cava, Percutaneous Approach (ICD-10-PCS; 2017-04-02)
DX: T40.1X1A Poisoning by heroin, accidental (unintentional), initial encounter (principal); N17.0 Acute kidney failure with tubular necrosis; J96.01 Acute respiratory failure with hypoxia; J96.02 Acute respiratory failure with hypercapnia; G92 Toxic encephalopathy; R53.2 Functional quadriplegia; D68.59 Other primary thrombophilia; E66.01 Morbid (severe) obesity due to excess calories; F11.10 Opioid abuse, uncomplicated; Y92.89 Other specified places as the place of occurrence of the external cause; F17.210 Nicotine dependence, cigarettes, uncomplicated; N39.0 Urinary tract infection, site not specified; B96.20 Unspecified Escherichia coli [E. coli] as the cause of diseases classified elsewhere; T65.91XA Toxic effect of unspecified substance, accidental (unintentional), initial encounter; Z68.36 Body mass index [BMI] 36.0-36.9, adult; Z71.3 Dietary counseling and surveillance; F19.10 Other psychoactive substance abuse, uncomplicated
CPT/HCPCS: 36415; 36600; 70030-TC; 70450; 71010; 80307; 82746; 83550; 83605; 83690; 83735; 84100; 84443; 84703; 85025; 85651; 85730; 87040; 87070; 87077; 87086; 92523; 92610; 93005; 93307; 94002; 94003; A4663; C1758; G0480; G0480-TC; J0330; J0360; J1200; J1630; J1650; J2060; J2310; J2358; J2543; J3411; J3475; J3480; J3490; J7030; J7042; J7050; J7060

== ENCOUNTER 2017-04-12 16:31 | Emergency (ER) | payer OTHER ==
[~2017-04-12] VITALS: Ht 160 cm; Wt 81.6 kg
--- NOTE | 2017-04-12 17:26 | NUR ---
Patient discharged to home in stable conditon. Written and verbal after care instructions given. Patient verbalizes understanding of instructions.pt walks in steady gait.
== END 2017-04-12 17:32 | disposition home or self-care (01) ==
LOC: ER 16:31
DX: N39.0 Urinary tract infection, site not specified (principal); J02.9 Acute pharyngitis, unspecified; F17.200 Nicotine dependence, unspecified, uncomplicated; Z88.6 Allergy status to analgesic agent
CPT/HCPCS: A4663